=== PATIENT | male | born 1965 | race Caucasian/White ===

== ENCOUNTER 2017-06-15 06:32 | Inpatient (IN) ==
[2017-06-15] MEDS ORDERED: *HR* Propofol 200 MG/20 ML VIAL IVP ONE (06:39)
[2017-06-15] MEDS ORDERED: *HR* Rocuronium Bromide 50 MG/5 ML VIAL ONE (06:41)
[2017-06-15] MEDS ORDERED: *HR* Succinylcholine 200 MG/10 ML VIAL IVP ONE (06:41)
[2017-06-15] MEDS ORDERED: Dexamethasone 4 MG/ML VIAL ONE (06:41)
[2017-06-15] MEDS ORDERED: Ondansetron 4 MG/2 ML VIAL ONE (06:41)
[2017-06-15] MEDS ORDERED: Lidocaine -MPF 1% 2 ML VIAL ID ONE (06:46)
[2017-06-15] MEDS ORDERED: CeFAZolin Syr 3,000MG/30 ML 3,000 MG/30 ML SYRINGE IVPB ONE (06:51)
[2017-06-15] MEDS ORDERED: *HR* FentaNYL (PF) 100 MCG/2 ML VIAL ONE (06:56)
[2017-06-15] MEDS ORDERED: *HR* Midazolam HCl 2 MG/2 ML VIAL ONE (06:57)
[2017-06-15] MEDS ORDERED: Ringers Solution, Lactated 1,000 ML IVC SCH ×3 (07:00→08:45)
[2017-06-15] MEDS ORDERED: Albuterol 2.5 MG/3 ML NEBULIZER IH ONE (07:08)
[2017-06-15] MEDS ORDERED: Famotidine 20 MG/2 ML VIAL IVP ONE (07:12)
[2017-06-15] MEDS ORDERED: Albuterol 2.5 MG/3 ML NEBULIZER ONE (07:12)
[2017-06-15] MEDS ORDERED: Acetaminophen IV 1,000 MG/100 ML INFUS..BTL IVPB ONE (07:13)
[2017-06-15] MEDS ORDERED: Gabapentin 300 MG CAPSULE PO ONE (07:13)
--- NOTE | 2017-06-15 07:16 | Anesthesia Evaluation PreOp ---
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 HX Other Medical History: Diabetes Type II, Other (Morbid Obesity) Anesthesia History: No Prior Anesthetic Complications Alcohol Use: none Drug use: none Medications and Allergies Ibuprofen [Motrin] 600 mg PO Q6HR PRN #30 tab 10/15/15 [Rx] 3 Allergy/AdvReac Type Severity Reaction Status Date / Time No Known Allergies Allergy Verified 06/24/15 08:46 - Meds/Allergy Pre-op Review Medications Reviewed: Yes Allergies Reviewed: Yes Beta Blockers on Current Med List: Yes (Took Toprol 0500 today) Anesthesia Results - Labs Laboratory Tests 06/13/17 06/13/17 06/13/17 15:06 15:06 15:06 Hgb 12.9 Hct 41.7 Plt Count 218 PT 11.4 INR 1.1 APTT 31.1 Sodium 143 Potassium 4.4 BUN 20 Creatinine 0.94 - Imaging EKG: report reviewed (SB) Anesthesia Exam O2 Sat Height 1.7 m Height 1.7 m Height 1.7 m Weight 150.593 kg Weight 150.593 kg Weight 150.593 kg O2 Sat by Pulse Oximetry 97 O2 Sat by Pulse Oximetry 97 Vital Signs Temp Pulse Resp BP Pulse Ox 97.8 F 66 18 123/74 97 06/15/17 07:01 06/15/17 07:01 06/15/17 07:01 06/15/17 07:01 06/15/17 07:01 Height: 5'7 Weight: 332 lbs NPO (# of Hours): MN Pain Scale: 0 - HEENT Pupil (Motor): Pupils equal, EOMI Mallampati: II Teeth: Normal Oral Opening: Greater than 3 - 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 LOC: Oriented 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
[2017-06-15] MEDS ORDERED: *HR* Remifentanil 1 MG VIAL IVP ONE ×2 (07:28→07:30)
--- NOTE | 2017-06-15 07:38 | History & Physical Report ---
Date of Encounter: 06/15/17 Time of Encounter: 07:30 24 Hour HP Update - Instructions Instructions: If the History and Physical is less than 30 days old and was completed prior to A.M. admission and or procedure and has NOT been updated on calendar day of procedure please complete this update prior to performing procedure. - Update Patient reports changes in Medical Condition: No Changes in examination, assessment, or condition: No Changes in Medication: No Preop tests/diagnostics Reviewed: Yes Pre-Op MRSA Screen: Negative Surgery Remains Indicated: Yes Consent for Planned Operative Procedure(s) Verified: Yes - Pre-Operative Checklist Preoperative Checklist Indicated: No Prophylactic Antibiotic Ordered: Yes Home Medications Include Beta Katherine: Yes Beta Katherine Taken Today (Day of Surgery): No Beta Katherine Taken Yesterday (Day Prior to Surgery): Yes Is VTE Prophylaxis Indicated?: Yes
[2017-06-15] MEDS ORDERED: Ondansetron 4 MG/2 ML VIAL IVP ONE (08:40)
[2017-06-15] MEDS ORDERED: *HR* Labetalol 20 MG/4 ML SYRINGE IVP PRN (08:40)
[2017-06-15] MEDS ORDERED: *HR* HYDROmorphone 2 MG/ML SYRINGE ONE (10:09)
--- NOTE | 2017-06-15 10:15 | Orthopedic Operative Note ---
Date of procedure: 06/15/17 Pre-op diagnosis: Cervical stenosis, cervical radiculopathy Post-op diagnosis: same Operation/Findings: Anterior cervical decompression and fusion C6-7: The patient was brought to the operating room and placed supine on the operating room table. Successful general endotracheal anesthesia intubation was performed. Neurophysiologic monitoring personnel placed leads on the upper and lower extremities as well as the cranium for EMG monitoring purposes. Appropriate baseline potentials were noted by the neurophysiologic monitoring staff. Taylor catheter was placed prior to positioning. Compression boots and stockings were placed for deep vein thrombosis prophylaxis. Padding was also placed all bony prominences including the ulnar nerve near the medial epicondyles of the elbows were appropriately padded. Mild traction was placed on the bilateral shoulders and taped into place. Preoperative antibiotics were administered. The area from the mandible bilaterally to the upper thoraces was prepped and draped in the usual sterile fashion. A transverse incision was made at the level of the cricoid cartilage which is approximately 3 cm in length and extended from the midline of the cervical spine laterally towards the sternocleidomastoid muscle on the left. We then performed standard medial approach to the carotid sheath. Sponges were used to tease the fascial medial to the sternocleidomastoid muscle while carefully controlling and palpating the carotid artery. Using careful dissection we were able to get to the level of the anterior vertebral bodies and longus coli muscles. The spinal needle was placed at the appropriate C6-7 level, and intraoperative radiograph was obtained which was a cervical spine lateral radiograph. The needle and radiograph confirmed we were at the correct operative level. We further exposed this level by using Bovie cautery under the medial edge of the longus coli muscles to allow them to be retracted approximately 2 mm laterally on each side. An 11 blade was used to perform anterior discectomy at the appropriate C6-7 level after an initial annulotomy of the anterior longitudinal ligament and annulus was performed. Further disc material was removed with pituitary Rongeurs. Subsequently, Synthes pins were placed at the C6 and C7 vertebral bodies respectively to provide distraction. We then used a Trimline cervical retractor which was placed in both medial and lateral as well as inferior superior direction to allow full visualization of the appropriate C6-7 disc andC6 and C7 vertebral bodies. The Leica microscope was brought to the field and the remainder of the procedure was performed under the guidance of this microscope. Using pituitary rongeurs and small curettes, various micro-instruments, a full discectomy was performed at the appropriate C6-7 level. The posterior longitudinal ligament was encountered and appeared partially calcified. A portion of this ligament was removed. After complete and thorough discectomy and removal of spondylitic material was performed the endplates of the C6 and C7 vertebral bodies were prepared with a bur until allow bleeding of cancellous bone. A 7 mm trial graft was evaluated and appeared to fit quite well within the excised disc space. A cortico-cancellus allograft of 7 mm was utilized, carefully tapped into place within the excised disc space with the aid of a bone tamp. It was seated approximately 2 mm from the anterior edge of the cortex of the adjacent vertebral bodies. A cervical plate was then placed on the anterior aspect of the C6 and C7 vertebral bodies. The plate was placed in the midline position after drilling four 13 mm self tapping screws and inserting them. They were locked in place using standard Venture plate maneuvers. At this point a lateral radiograph of the cervical spine was obtained and showed satisfactory position of the graft and plate. The wound was copiously irrigated and bleeders encountered were cauterized using Bovie cautery. Platysma was closed with interrupted 2-0 Vicryl sutures. Running 3-0 Monocryl suture was used for skin closure. Sterile dressing was placed over the neck wound. The patient was transferred to a hospital bed and extubated. The patient was noted to be fully motor and sensory intact in the recovery room at the end of the procedure. The medications. All sponge instrument and needle counts were correct at the end of the procedure. Anesthesia: GETA Surgeon: Jacobo Bolden Jr Estimated blood loss (cc): 15 Condition: stable Disposition: PACU
[2017-06-15] MEDS: *HR* HYDROmorphone (PF) 1 MG/ML SYRINGE IVP PRN ×2 (10:39→10:41)
--- NOTE | 2017-06-15 11:17 | Anesthesia Evaluation Post Op ---
Date of Encounter: 06/15/17 Time of Encounter: 11:25 - Vital Signs Vital Signs: Vital Signs/O2 Sat/Glucose, Most Current Temp Pulse Resp BP Pulse Ox 06/15/17 11:05 67 12 124/76 95 06/15/17 10:55 97.9 F 73 12 120/69 94 06/15/17 10:45 75 12 121/70 94 06/15/17 10:35 73 12 118/73 99 06/15/17 10:25 97.7 F 75 8 119/80 98 - Lungs Lungs: Clear Ascult./Percussion - Airway Airway: Non-obstructed - Cardiovascular Regular Rate - Mental Status Mental Status: Alert & Oriented, Answers Appropriately - Pain Pain Scale: 1 - Nausea Vomiting Nausea Vomiting: Not Present - Hydration Hydration: NPO, Taylor catheter - Discharge PostOp Status: Transfer Patient to floor
[2017-06-15] MEDS ORDERED: Acetaminophen 325 MG TABLET PO PRN (11:58)
[2017-06-15] MEDS ORDERED: Naloxone 0.4 MG/ML INJ IVP PRN (11:58)
[2017-06-15] MEDS ORDERED: *HR* Morphine 2 MG/ML SYRINGE IVP PRN (11:58)
[2017-06-15] MEDS ORDERED: Ondansetron 4 MG/2 ML VIAL IVP PRN (11:58)
[2017-06-15] MEDS: *HR* OxyCODONE Immed Rel 5 MG TABLET PO PRN (14:44)
[2017-06-15] MEDS: CeFAZolin Premix DUPLEX 2,000 MG/50 ML BAG IVPB SCH ×2 (14:45→22:39)
[2017-06-15] MEDS: Ringers Solution, Lactated 1,000 ML IVC SCH ×2 (22:35→22:38)
[2017-06-16] MEDS ORDERED: Tiotropium 18 MCG inhalation IH SCH (07:00)
[2017-06-16] MEDS: *HR* OxyCODONE Immed Rel 5 MG TABLET PO PRN (07:58)
[2017-06-16] MEDS ORDERED: Cholecalciferol (D-3) 1,000 UNIT TABLET PO SCH (09:00)
[2017-06-16] MEDS ORDERED: Multivit/Ca/Min/Fe/FA 1 TAB TABLET PO SCH (09:00)
[2017-06-16] MEDS ORDERED: Verapamil ER (24 HR) 180 MG TABLET.ER PO SCH (09:00)
[2017-06-16] MEDS ORDERED: Metoprolol XL (24 HR) Succ 50 MG TAB.ER.24H PO SCH (09:00)
[2017-06-16] MEDS ORDERED: Ondansetron 4 MG/2 ML VIAL IVP PRN (11:04)
--- NOTE | 2017-06-16 13:25 | Discharge Summary ---
Date of Encounter: 06/16/17 Time of Encounter: 13:23 - Discharge Diagnosis (1) Cervical stenosis of spinal canal Priority: Primary Status: Chronic (2) Cervical radiculopathy Priority: Secondary Status: Chronic - Discharge Medications Prescriptions: OxyCODONE Immed Rel [Roxicodone 5 MG] 5 mg PO Q6HR PRN #30 tablet PRN Reason: Severe Pain Home Medications: Albuterol Sulfate [Ventolin Hfa] 2 puff IH Q6H PRN 06/15/17 [History] Atorvastatin [Lipitor] 10 mg PO HS 06/15/17 [History] Calcium Carbonate [Calcium] 500 mg PO DAILY 06/15/17 [History] Cholecalciferol (D-3) [Vitamin D] 2,000 unit PO DAILY 06/15/17 [History] Docusate [Colace] 100 mg PO DAILY 06/15/17 [History] Gabapentin [Neurontin] 600 mg PO TID 06/15/17 [History] Iron,Fm,Ps/Folic/B,C18/L.casei [Fusion Plus Capsule] 1 cap PO DAILY 06/15/17 [ History] Losartan Potassium [Cozaar] 100 mg PO DAILY 06/15/17 [History] Metoprolol Succinate 100 mg PO DAILY 06/15/17 [History] Pantoprazole Sodium [Protonix] 40 mg PO DAILY 06/15/17 [History] Tamsulosin [Flomax] 0.4 mg PO DAILY 06/15/17 [History] Tiotropium [Spiriva] 18 mcg IH 0700 06/15/17 [History] Verapamil ER (24 HR) [Calan SR] 180 mg PO DAILY 06/15/17 [History] OxyCODONE Immed Rel [Roxicodone 5 MG] 5 mg PO Q6HR PRN #30 tablet 06/16/17 [Rx] Allergies/Adverse Reactions: 3 Allergy/AdvReac Type Severity Reaction Status Date / Time No Known Allergies Allergy Verified 06/15/17 07:22 Labs on day of discharge: Labs from last 24 hours 06/15/17 06/15/17 20:22 16:30 POC Glucose 162 H 115 H - Impressions ITS Impressions Cervical Spine X-Ray 06/15/17 00:00 IMPRESSION: Superior surgical hardware appears to lie at approximately the level of C5-C6 when correlated with a previous study on 02/24/2017. D/ / Moustapha Booth MD / Moustapha Booth MD Interpreting Provider: Moustapha Booth MD Cervical Spine X-Ray 06/15/17 00:00 IMPRESSION: 1. Anterior fusion hardware at C3 through C5. 2. The fusion hardware involving the lower cervical spine is not visualized due to overlying soft tissue. D/ / Alfonso Bergeron MD / Alfonso Bergeron MD Interpreting Provider: Alfonso Bergeron MD Cervical Spine X-Ray 06/16/17 08:16 IMPRESSION: Status post C6-7 anterior fusion. Anatomic alignment. D/ / 06/16/2017 08:35:59 Carl Prasad MD / lamin Interpreting Provider: Carl Prasad MD Date of admission: 06/15/17 11:55 Primary care physician: PCP NONE Consults: 06/15/17 11:58 Consult to Physical Therapy [CONS] Routine Comment: Evaluate, develop and implement POC Reason for Consult: Postoperative rehabilitation Consult to Spine Navigator [CONS] [CONS] Routine 06/16/17 10:16 Consult to Occupational Therapy [CONS] Routine Comment: Evaluate, develop and implement POC Reason for Consult: Postoperative rehabilitation - Patient Status Disposition: Home, Self-Care Condition: Good Functional capacity at discharge: independent ambulation Overall status at discharge: patient is progressing back to baseline - Discharge Instructions Follow Up With: NONE,PCP [Primary Care Provider] - - Diet and Activity Activity: as per physical therapy Diet: advance to your usual diet - Hospital Course Hospital course: Mr. Merchant is a 52 year old male The patient had an uneventful postoperative course. Progressed from intravenous analgesic needs to oral analgesic needs only. Remained neurovascularly intact and mobilized satisfactorily. All intraoperative and/or postoperative radiographic studies were satisfactory. Patient is discharged with plan for rehabilitation and follow-up in 2 weeks post discharge on analgesic medication and patient's home medications. - Time Spent with Patient Total time spent providing and/or coordinating discharge services: - VTE Documentation of Mechanical Device: Intermittent pneumatic compression device
[2017-06-16 15:17] VITALS: BP 129/74
== END 2017-06-16 15:52 | disposition home or self-care (01) | DRG 472 ==
LOC: SAMDAY 06:32 → 3NENU 11:55
PROVIDERS: ADMIT Orthopaedic Surgery Orthopaedic Surgery of the Spine; ATTEND Orthopaedic Surgery Orthopaedic Surgery of the Spine